=== PATIENT | female | born 1980 | race American Indian/Alaskan Native ===

== ENCOUNTER 2021-11-21 13:52 | Emergency (ER) | payer BC ==
--- NOTE | 2021-11-21 16:48 | Emergency Department Report ---
ED Headache HPI - General Chief Complaint: Headache Stated Complaint: HEADACHE/FAINTING/DIZZY - History of Present Illness Initial Comments: 41-year-old female presents to the ED complaining of a headache after syncopal episode last night. She states that she was about to use the restroom when she lost consciousness . Patient states she do not remember but awakened with to her telling her happened. Patient states that her headache is currently a 10 out of 10. SHe states that she did not have a history of hypertension. Patient is alert and oriented. No acute distress noted no ill appearance noted. Quality: moderate Head Injury Location: frontal Recent Head Trauma: head trauma > 24 hrs ago Associated Symptoms: denies symptoms Allergies/Adverse Reactions: Allergies No Known Allergies Allergy (Unverified 11/21/21 14:19) Home Medications: Ambulatory Orders Amlodipine Besylate [Norvasc] 10 mg PO DAILY 30 Days #30 tab 11/21/21 ED Review of Systems ROS: Stated complaint: HEADACHE/FAINTING/DIZZY Other details as noted in HPI Constitutional: denies: chills, fever Eyes: denies: eye pain, eye discharge, vision change ENT: denies: ear pain, throat pain Respiratory: denies: cough, shortness of breath, wheezing Cardiovascular: denies: chest pain, palpitations Endocrine: no symptoms reported Gastrointestinal: denies: abdominal pain, nausea, diarrhea Genitourinary: denies: urgency, dysuria, discharge Musculoskeletal: denies: back pain, joint swelling, arthralgia Skin: denies: rash, lesions Neurological: headache. denies: weakness, paresthesias Psychiatric: denies: anxiety, depression Hematological/Lymphatic: denies: easy bleeding, easy bruising ED Past Medical Hx - Past Medical History Previous Medical History?: Yes Additional medical history: HTN. no meds - Surgical History Past Surgical History?: No - Medications Home Medications: Home Medications Medication Instructions Recorded Confirmed Last Taken Type Amlodipine Besylate [Norvasc] 10 mg PO DAILY 30 Days #30 tab 11/21/21 Unknown Rx ED Physical Exam - General Limitations: No Limitations General appearance: alert, in no apparent distress - Head Head exam: Present: atraumatic, normocephalic - Eye Eye exam: Present: normal appearance - ENT ENT exam: Present: mucous membranes moist - Neck Neck exam: Present: normal inspection - Respiratory Respiratory exam: Present: normal lung sounds bilaterally. Absent: respiratory distress - Cardiovascular Cardiovascular Exam: Present: regular rate, normal rhythm. Absent: systolic mur mur, diastolic murmur, rubs, gallop - GI/Abdominal GI/Abdominal exam: Present: soft, normal bowel sounds - Extremities Exam Extremities exam: Present: normal inspection - Back Exam Back exam: Present: normal inspection - Neurological Exam Neurological exam: Present: alert, oriented X3 - Psychiatric Psychiatric exam: Present: normal affect, normal mood - Skin Skin exam: Present: warm, dry, intact, normal color. Absent: rash ED Course Vital Signs 11/21/21 11/21/21 14:18 18:40 Temperature 99.0 F Pulse Rate 82 67 Respiratory 20 16 Rate Blood Pressure 173/106 159/88 O2 Sat by Pulse 100 100 Oximetry ED Medical Decision Making - Lab Data Result diagrams: 11/21/21 17:17 11/21/21 17:17 - Radiology Data [facility] [address] [place] [address] Cat Scan Report Signed Patient: LEW PEÑA R#: [id number] : 1980 Acct:[id number] Age/Sex: 41 / F ADM Date: 11/21/21 Loc: ED Attending Dr: Ordering Physician: BUTCH BECERRA Date of Service: 11/21/21 Procedure(s): CT head/brain wo con Accession Number(s): [id number] cc: BUTCH BECERRA NONENHANCED CT SCAN OF THE HEAD: INDICATION / CLINICAL INFORMATION: 41 years Female; fell down yesterday; pain in the frontal region TECHNIQUE: Routine CT head without contrast. All CT scans at this location are performed using CT dose reduction for ALARA by means of automated exposure control. COMPARISON: None. FINDINGS: BRAIN / INTRACRANIAL CONTENTS: No intracranial sequela from the trauma; no scalp hematoma; no fluid level in the visualized portions of the paranasal sinuses No acute hemorrhage, mass effect, midline shift, hydrocephalus, or acute, large territorial infarct. No chronic infarct or focal atrophy. Normal brain volume and ventricular/sulcal size for age. No significant white matter abnormality. CRANIOCERVICAL JUNCTION: Tonsillar ectopia; soft tissue fullness at the level of foramen magnum ORBITS: No significant abnormality of visualized orbits. SINUSES / MASTOIDS: No significant abnormality of the visualized paranasal sinuses or mastoid air cells. ADDITIONAL FINDINGS: Mp; IMPRESSION: No intracranial sequela from the trauma; no acute focal parenchymal lesion in the brain Signer Name: Scott Barger MD Signed: 11/21/2021 5:01 PM Workstation Name: [id number] Transcribed By: HUSSAIN Dictated By: Scott Owens MD Electronically Authenticated By: Scott Owens MD Signed Date/Time: 11/21/211700 DD/ 57 TD/TT: Print Cancel - Medical Decision Making 41-year-old female presents to the ED complaining of a headache after syncopal episode last night. She states that she was about to use the restroom when she lost consciousness . Patient states she do not remember but awakened with to her telling her happened. Patient states that her headache is currently a 10 out of 10. She states that she did not have a history of hypertension. Patient is alert and oriented. No acute distress noted no ill appearance noted. Physical examination is unremarkable. Norvasc 10 mg po restarted. Rechecked the patient is resting quietly quietly and comfortable and feeling better. I discussed the results of diagnostic study, my clinical impression and the plan for further treatment with the patient. Patient agrees with plan and discharge at this present time. All question addressed. I have given the patient instruction regarding a diagnosis ,expectation ,follow-up and return precaution. I explained to the patient that emergent condition may arise and to return to the ED for new worsen and any new persisting condition. I have explained the importance of following up with the primary care physician or referral physician listed below has instructed. The patient verbalized understanding of discharge instruction. Critical care attestation.: If time is entered above; I have spent that time in minutes in the direct care of this critically ill patient, excluding procedure time. ED Disposition Clinical Impression: Headache Qualifiers: Headache type: post-traumatic Headache chronicity pattern: acute headache Intractability: not intractable Qualified Code(s): G44.319 - Acute post-traumatic headache, not intractable Hypertension Qualifiers: Hypertension type: primary hypertension Qualified Code(s): I10 - Essential (primary) hypertension Disposition: HOME / SELF CARE / HOMELESS Is pt being admited?: No Does the pt Need Aspirin: No Condition: Stable Instructions: Hypertension, Adult, [id number], General Headache Without Cause, [id number], Managing Your Hypertension, Hypertension (ED) Additional Instructions: Take medication as prescribed Return to ED for any worsening symptom Prescriptions: Amlodipine Besylate [Norvasc] 10 mg PO DAILY 30 Days #30 tab Referrals: PRACTICE ULISES,TENNILLE ZELAYA [Other] - 3-5 Days [facility] [Provider Group] - 3-5 Days Forms: Work/School Release Form(ED)
--- NOTE | 2021-11-21 17:06 | Cat Scan Report ---
NONENHANCED CT SCAN OF THE HEAD: INDICATION / CLINICAL INFORMATION: 41 years Female; fell down yesterday; pain in the frontal region TECHNIQUE: Routine CT head without contrast. All CT scans at this location are performed using CT dos e reduction for ALARA by means of automated exposure control. COMPARISON: None. FINDINGS: BRAIN / INTRACRANIAL CONTENTS: No intracranial sequela from the trauma; no scalp hematoma; no fluid l evel in the visualized portions of the paranasal sinuses No acute hemorrhage, mass effect, midline shift, hydrocephalus, or acute, large territorial infarct. No chronic infarct or focal atrophy. Normal brain volume and ventricular/sulcal size for age. No sig nificant white matter abnormality. CRANIOCERVICAL JUNCTION: Tonsillar ectopia; soft tissue fullness at the level of foramen magnum ORBITS: No significant abnormality of visualized orbits. SINUSES / MASTOIDS: No significant abnormality of the visualized paranasal sinuses or mastoid air brian ls. ADDITIONAL FINDINGS: Mp; IMPRESSION: No intracranial sequela from the trauma; no acute focal parenchymal lesion in the brain Signer Name: Scott Barger MD Signed: 11/21/2021 5:01 PM Workstation Name: [id number]
[2021-11-21 17:41] LABS: Basophils % (Auto) 0.4 % (0.0-1.8); Eosinophils # (Auto) 0.2 K/mm3 (0.0-0.4); Eosinophils % (Auto) 2.8 % (0.0-4.3); Hematocrit 39.9 % (30.3-42.9); Lymphocytes # (Auto) 3.9 K/mm3 (1.2-5.4); Lymphocytes % (Auto) 48.5 % (13.4-35.0); Mean Corpuscular HGB Conc 33 % (30-34); Mean Corpuscular Volume 96 fl (79-97); Monocytes # (Auto) 0.6 K/mm3 (0.0-0.8); Monocytes % (Auto) 7.4 % (0.0-7.3); Platelet Count 258 K/mm3 (140-440); Red Blood Count 4.17 M/mm3 (3.65-5.03); Red Cell Distribution Width 13.7 % (13.2-15.2)
[2021-11-21 18:00] LABS: Alanine Aminotransferase 38 units/L (7-56); Albumin 4.2 g/dL (3.9-5); Blood Urea Nitrogen 13 mg/dL (7-17); Calcium 8.9 mg/dL (8.4-10.2); Hemolysis Index 28
[2021-11-21 18:01] LABS: BUN/Creatinine Ratio 33
[2021-11-21 18:43] VITALS: BP 159/88
--- NOTE | 2021-11-22 09:39 | Electrocardiograph Report ---
[facility] Test Date: 2021-11-21 Test Time: 16:23:21 Pat Name: LEW PEÑA Department: Room: Gender: F Bilingual Kindergarten Teacher: SHANI : 1980 Requested By: LETICIA DOSS Order Number: [id number] Reading MD: Loree Caba Measurements Intervals [place] Rate: 62 P: 51 RI: 187 QRS: -22 QRSD: 103 T: 14 QT: 435 QTc: 443 Interpretive Statements Sinus rhythm Probable lateral infarct, old No previous ECG available for comparison Electronically Signed On 11-22-2021 9:38:58 EST by Loree Caba
== END 2021-11-21 18:43 | disposition home or self-care (01) ==
LOC: EDBD → ED 13:52
DX: R51.9 Headache, unspecified (principal); I10 Essential (primary) hypertension
CPT/HCPCS: 36415; 70450; 80053; 84484; 85025; 93005; 93010; 99284

== ENCOUNTER 2022-06-09 09:05 | Emergency (ER) | payer OTHER, BC ==
[2022-06-09 09:23] VITALS: BP 148/91
[2022-06-09] MEDS ORDERED: KETOROLAC 10 MG TAB PO ONE (12:21)
[2022-06-09] MEDS ORDERED: CYCLOBENZAPRINE 10 MG TAB PO ONE (12:21)
[2022-06-09] MEDS ORDERED: oxyCODONE /ACETAMINOPHEN 5-325MG TAB PO ONE (12:21)
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
== END 2022-06-09 14:02 | disposition home or self-care (01) ==
LOC: ED 09:05
DX: M54.9 Dorsalgia, unspecified (principal); M25.512 Pain in left shoulder; V89.2XXA Person injured in unspecified motor-vehicle accident, traffic, initial encounter; Y93.89 Activity, other specified; Y92.89 Other specified places as the place of occurrence of the external cause; Y99.8 Other external cause status
CPT/HCPCS: 99282